=== PATIENT | male | born 1970 | race Caucasian/White ===

== ENCOUNTER 2019-01-17 11:21 | Emergency (ER) | payer BC ==
[~2019-01-17] VITALS: Ht 167.6 cm; Wt 77.3 kg
[2019-01-17 11:21] VITALS: BP 113/77
[2019-01-17] MEDS ORDERED: LIPI20TA PO (11:38)
[2019-01-17] MEDS ORDERED: ZOLO100T PO (11:38)
[2019-01-17] MEDS ORDERED: LIDO1SOL7 SSP (12:26)
== END 2019-01-17 12:30 | disposition home or self-care (01) ==
LOC: M ED 11:21
DX: K13.70 Unspecified lesions of oral mucosa (principal); I10 Essential (primary) hypertension; E78.00 Pure hypercholesterolemia, unspecified; K25.9 Gastric ulcer, unspecified as acute or chronic, without hemorrhage or perforation; F43.10 Post-traumatic stress disorder, unspecified; F17.210 Nicotine dependence, cigarettes, uncomplicated; Z88.0 Allergy status to penicillin; Z79.899 Other long term (current) drug therapy